=== PATIENT | male | born 1975 | race Caucasian/White ===

== ENCOUNTER 2018-07-13 12:41 | Emergency (ER) | payer OTHER ==
[2018-07-13 13:00] VITALS: BP 112/72
--- NOTE | 2018-07-13 14:29 | UC ---
Abdominal Pain Male HPI - HPI Summary HPI Summary: Started getting low suprapubic cramping and pain 3-4 days ago. Feels just like when he had an episode of diverticulitis 3 years ago (confirmed with CT, followed up with colonoscopy). Denies fever, vomiting, or low appetite. Having regular small bowel movements; pain is worse when he needs to have a BM, better for a little while after. - History of Current Complaint Chief Complaint: UCAbdominalPain Stated Complaint: ABD PAIN Time Seen by Provider: 07/13/18 14:18 Hx Obtained From: Patient Onset/Duration: Gradual Onset, Lasting Days Timing: Constant Severity Initially: Mild Severity Currently: Mild Pain Intensity: 4 Location: Suprapubic Radiates: No Character: Aching, Cramping Alleviating Factor(s): Other - BM Associated Signs And Symptoms: Negative: Fever, Cough, Constipation, Blood in Stool, Urinary Symptoms, Decreased Appetite, Diarrhea - Allergies/Home Medications Allergies/Adverse Reactions: Allergies Allergy/AdvReac Type Severity Reaction Status Date / Time No Known Allergies Allergy Verified 07/13/18 13:00 PMH/Surg Hx/FS Hx/Imm Hx Previously Healthy: Yes GI/ History: Diverticulitis - Surgical History Surgical History: Yes Surgery Procedure, Year, and Place: WRIST SURGERY 2001, APPENDECTOMY 2000 - Family History Known Family History: Positive: None Negative: Cardiac Disease, Hypertension, Diabetes Family History: R & n/C - Social History Alcohol Use: Occasionally Substance Use Type: None Smoking Status (MU): Never Smoked Tobacco Review of Systems Constitutional: Negative Skin: Negative Eyes: Negative ENT: Negative Respiratory: Negative Cardiovascular: Negative Gastrointestinal: Abdominal Pain Genitourinary: Negative Motor: Negative Neurovascular: Negative Musculoskeletal: Negative Neurological: Negative Psychological: Negative Is Patient Immunocompromised?: No All Other Systems Reviewed And Are Negative: Yes Physical Exam Triage Information Reviewed: Yes Appearance: Well-Appearing, Well-Nourished Vital Signs: Initial Vital Signs Temp 98.5 F 07/13/18 12:56 Pulse 51 07/13/18 12:56 Resp 18 07/13/18 12:56 BP 112/72 07/13/18 12:56 Pulse Ox 98 07/13/18 12:56 Vital Signs Reviewed: Yes Eye Exam: Normal Eyes: Positive: Conjunctiva Clear ENT Exam: Normal ENT: Positive: Normal ENT inspection, Hearing grossly normal, Pharynx normal, TMs normal Dental Exam: Normal Neck exam: Normal Neck: Positive: Supple, Nontender, No Lymphadenopathy Respiratory Exam: Normal Respiratory: Positive: Chest non-tender, Lungs clear, Normal breath sounds, No respiratory distress Cardiovascular Exam: Normal Cardiovascular: Positive: RRR, No Murmur Abdominal Exam: Other - Mild tenderness low suprapubic area, pt claims the same as when he had diverticulitis before. Abdomen Description: Positive: Soft. Negative: CVA Tenderness (R), CVA Tenderness (L), Guarding Musculoskeletal Exam: Normal Musculoskeletal: Positive: Strength Intact Abd Pain Male Course/Dx - Course Course Of Treatment: Discussed importance of f/u with PCP this week to make sure his symptoms are resolving with therapy. - Differential Dx/Clinical Impression Differential Diagnosis/HQI/PQRI: Appendicitis, Bowel Obstruction, Diverticulitis , Urinary Tract Infection Provider Diagnoses: diverticulitis Discharge - Sign-Out/Discharge Documenting (check all that apply): Patient Departure All imaging exams completed and their final reports reviewed: No Studies - Discharge Plan Condition: Stable Disposition: HOME Referrals: No Primary Care Phys,NOPCP [Primary Care Provider] - - Billing Disposition and Condition Condition: STABLE Disposition: Home
== END 2018-07-13 14:43 | disposition home or self-care (01) ==
LOC: UCEAST 12:41
DX: K57.92 Diverticulitis of intestine, part unspecified, without perforation or abscess without bleeding (principal)
CPT/HCPCS: 99212; G0463